=== PATIENT | male | born 1995 | race Caucasian/White ===

== ENCOUNTER 2017-04-27 18:57 | Emergency (ER) | payer OTHER ==
[~2017-04-27] VITALS: Ht 190.5 cm; Wt 66.4 kg
[~2017-04-27 18:57] MED LIST: TOPI1TAB36 PO; TRAM50TA PO
[2017-04-27 19:03] VITALS: BP 139/77; PULSE 90; RESP 16; TEMP 97.7; O2SAT 100
[2017-04-27] MEDS ORDERED: ALPR1TAB3 PO (19:28)
[2017-04-27] MEDS ORDERED: SODIUM CHLORIDE 0.9% FLUSH 10 ML FLUSH IVF PRN (19:30)
[2017-04-27] MEDS ORDERED: SODIUM CHLOR 0.9% 1000 ML INJ 1,000 ML IV ONE (19:30)
[2017-04-27 19:45] VITALS: O2SAT 100
[2017-04-27 19:51] LABS: AUTOMATED NEUTROPHIL # 5.5 TH/MM3 (1.8-7.7); BASOPHIL % 0.3 % (0.0-2.0); EOSINOPHIL # 0.4 TH/MM3 (0-0.4); EOSINOPHIL % 3.8 % (0.0-4.0); HEMATOCRIT 46.2 % (39.0-51.0); HEMO FLAGS DIFF FINAL; LYMPH % 29.9 % (9.0-44.0); LYMPHOCYTE # 2.8 TH/MM3 (1.0-4.8); MEAN CELL VOLUME 83.2 FL (80.0-100.0); MEAN CORPUSCULAR HEMOGLOBIN 28.4 PG (27.0-34.0); MEAN CORPUSCULAR HGB CONC 34.1 % (32.0-36.0); MONO % 6.5 % (0.0-8.0); NEUT % 59.5 % (16.0-70.0); PLATELET COUNT 256 TH/MM3 (150-450); RED BLOOD COUNT 5.55 MIL/MM3 (4.50-5.90); RED CELL DISTRIBUTION WIDTH 11.9 % (11.6-17.2); WHITE BLOOD COUNT 9.3 TH/MM3 (4.0-11.0)
--- NOTE | 2017-04-27 20:04 | RADRPT ---
EXAM DATE/TIME: 04/27/2017 19:26 [place] COMPARISON: CHEST SINGLE AP, March 29, 2016, 5:11. INDICATIONS : Shortness of breath for 3 days MEDICAL HISTORY : None. SURGICAL HISTORY : None. ENCOUNTER: Initial ACUITY: 3 days PAIN SCORE: 0/10 LOCATION: Bilateral chest FINDINGS: PA and lateral views of the chest demonstrate the lungs to be symmetrically aerated without evidence of mass, infiltrate or effusion. The cardiomediastinal contours are unremarkable. Osseous structure s are intact. Mild scoliosis of the thoracic spine is noted. CONCLUSION: No acute disease. Justino Treviño MD on April 27, 2017 at 20:01 Board Certified Radiologist. This report was verified electronically.
[2017-04-27 20:05] VITALS: BP 131/73; PULSE 75; RESP 20; O2SAT 100
[2017-04-27 20:05] LABS: CHLORIDE 102 MEQ/L (98-107); POTASSIUM 3.7 MEQ/L (3.5-5.1); SODIUM (NA) 138 MEQ/L (136-145)
[2017-04-27 20:08] LABS: ANION GAP 8 MEQ/L (5-15); BICARBONATE 27.8 MEQ/L (21.0-32.0)
[2017-04-27 20:09] LABS: BLOOD UREA NITROGEN 13 MG/DL (7-18)
[2017-04-27 20:10] LABS: APTT (PATIENT) 26.6 SEC (24.3-30.1); PROTHROMBIN TIME - PATIENT 11.4 SEC (9.8-11.6)
[2017-04-27 20:11] LABS: ALT (GPT) 25 U/L (12-78); AST (GOT) 23 U/L (15-37)
[2017-04-27 20:12] LABS: GLOMERULAR FILTRATION RATE 93 ML/MIN (>89)
[2017-04-27 20:13] LABS: TOTAL BILIRUBIN ADULT 1.5 MG/DL (0.2-1.0)
[2017-04-27 20:14] LABS: ALKALINE PHOSPHATASE 66 U/L (45-117)
--- NOTE | 2017-04-27 20:16 | PD ---
HPI Chief Complaint: Anxiety Time Seen by Provider: 19:12 Travel History International Travel<30 days: No Contact w/Intl Traveler<30days: No Traveled to known affect area: No History of Present Illness HPI Patient is a 21 year old male with history of seizures, who comes in complaining of "heat exhaustion." He says for the past 3 days he has been feeling weak and "delusional" at work. He says sometimes he feels like he can' t catch his breath and feels like he is having a panic attack. 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 He says he has had these feeling since going back to work 3 days ago. He says he does not drink a lot of water while working because he does not want to have to urinate. He denies any chest pain. He takes Alprazolam daily for his seizures, he does not report being out of this medication. He denies any fever. PFSH Past Medical History Asthma: No Blood Disorders: No Anxiety: Yes Depression: No Heart Rhythm Problems: No Cardiovascular Problems: No High Cholesterol: No Chemotherapy: No Chest Pain: No Congestive Heart Failure: No COPD: No Diabetes: No Diminished Hearing: No Endocrine: No Genitourinary: No Immune Disorder: Yes Musculoskeletal: No Neurologic: Yes Psychiatric: No Reproductive: No Respiratory: No Immunizations Current: Yes Radiation Therapy: No Seizures: Yes Sleep Apnea: No Thyroid Disease: No Tetanus Vaccination: < 5 Years Influenza Vaccination: No ?: Not Past Surgical History Abdominal Surgery: Yes (INGUINAL HERNIA REPAIR A BABY) Other Surgery: Yes (Hx. Hernia) Social History Alcohol Use: Yes (2 beers weekly) Tobacco Use: Yes (1 ppd) Substance Use: No Allergies-Medications (Allergen,Severity, Reaction): Coded Allergies: No Known Allergies (Verified , 04/27/17) Reported Meds & Prescriptions Reported Meds & Active Scripts Active Reported Alprazolam 1 Mg Tab 1 Mg PO DAILY Review of Systems Except as stated in HPI: all other systems reviewed are Neg General / Constitutional: No: Fever, Chills Eyes: No: Blurred Vision HENT: No: Headaches, Lightheadedness Cardiovascular: No: Chest Pain or Discomfort Respiratory: Positive: Shortness of Breath Gastrointestinal: No: Nausea, Vomiting Musculoskeletal: No: Edema, Pain Skin: No Rash, No Change in Pigmentation Neurologic: Positive: Weakness Physical Exam Narrative GENERAL: Awake and alert, in no acute distress. SKIN: Focused skin assessment warm/dry. HEAD: Atraumatic. Normocephalic. EYES: Pupils equal and round. No scleral icterus. No injection or drainage. ENT: Mucous membranes pink and moist. NECK: Trachea midline. No JVD. CARDIOVASCULAR: Regular rate and rhythm. No murmur appreciated. RESPIRATORY: No accessory muscle use. Clear to auscultation. Breath sounds equal bilaterally. GASTROINTESTINAL: Abdomen soft, non-tender, nondistended. MUSCULOSKELETAL: No obvious deformities. No clubbing. No cyanosis. No edema. NEUROLOGICAL: Awake and alert. No obvious cranial nerve deficits. Motor grossly within normal limits. Normal speech. PSYCHIATRIC: Appropriate mood and affect; insight and judgment normal. Data Data Last Documented VS Vital Signs Date Time Temp Pulse Resp B/P (MAP) Pulse Ox O2 Delivery O2 Flow Rate FiO2 04/27/17 20:05 75 20 131/73 (92) 100 Room Air 04/27/17 19:03 97.7 Orders Orders Complete Blood Count With Diff (04/27/17 19:19) Comprehensive Metabolic Panel (04/27/17 19:19) D-Dimer (04/27/17 19:19) Act Partial Throm Time (Ptt) (04/27/17 19:19) Prothrombin Time / Inr (Pt) (04/27/17 19:19) Troponin I (04/27/17 19:19) Iv Access Insert/Monitor (04/27/17 19:19) Electrocardiogram (04/27/17 19:19) Ecg Monitoring (04/27/17 19:19) Oximetry (04/27/17 19:19) Oxygen Administration (04/27/17 19:19) Chest, Pa & Lat (04/27/17 19:19) Sodium Chloride 0.9% Flush (Ns Flush) (04/27/17 19:30) Sodium Chlor 0.9% 1000 Ml Inj (Ns 1000 M (04/27/17 19:30) Labs Laboratory Tests Test 04/27/17 19:45 White Blood Count 9.3 TH/MM3 Red Blood Count 5.55 MIL/MM3 Hemoglobin 15.8 GM/DL Hematocrit 46.2 % Mean Corpuscular Volume 83.2 FL Mean Corpuscular Hemoglobin 28.4 PG Mean Corpuscular Hemoglobin Concent 34.1 % Red Cell Distribution Width 11.9 % Platelet Count 256 TH/MM3 Mean Platelet Volume 8.2 FL Neutrophils (%) (Auto) 59.5 % Lymphocytes (%) (Auto) 29.9 % Monocytes (%) (Auto) 6.5 % Eosinophils (%) (Auto) 3.8 % Basophils (%) (Auto) 0.3 % Neutrophils # (Auto) 5.5 TH/MM3 Lymphocytes # (Auto) 2.8 TH/MM3 Monocytes # (Auto) 0.6 TH/MM3 Eosinophils # (Auto) 0.4 TH/MM3 Basophils # (Auto) 0.0 TH/MM3 CBC Comment DIFF FINAL Differential Comment Prothrombin Time 11.4 SEC Prothromb Time International Ratio 1.0 RATIO Activated Partial Thromboplast Time 26.6 SEC D-Dimer Quantitative (PE/DVT) LESS THAN 0.19 MG/L FEU Blood Urea Nitrogen 13 MG/DL Creatinine 1.00 MG/DL Random Glucose 97 MG/DL Total Protein 8.2 GM/DL Albumin 4.4 GM/DL Calcium Level 9.0 MG/DL Alkaline Phosphatase 66 U/L Aspartate Amino Transf (AST/SGOT) 23 U/L Alanine Aminotransferase (ALT/SGPT) 25 U/L Total Bilirubin 1.5 MG/DL Sodium Level 138 MEQ/L Potassium Level 3.7 MEQ/L Chloride Level 102 MEQ/L Carbon Dioxide Level 27.8 MEQ/L Anion Gap 8 MEQ/L Estimat Glomerular Filtration Rate 93 ML/MIN Troponin I LESS THAN 0.02 NG/ML MDM Medical Decision Making Medical Screen Exam Complete: Yes Emergency Medical Condition: Yes Medical Record Reviewed: Yes Interpretation(s) ECG shows NSR at 85, no ST elevation or depression, short IL interval. Differential Diagnosis Anxiety versus dehydration versus URI versus bronchitis versus pneumonia Narrative Course Patient is a 21-year-old male who comes in complaining of "heat exhaustion." Type symptoms of feeling like he can't breathe and being delusional while at work. Currently he looks comfortable, he is alert and oriented 4, exam shows no acute abnormalities. IV established, labs sent. Labs show no acute abnormalities. White blood cell count is within normal limits, hemoglobin is within normal limits, electrolytes are all normal, creatinine is within normal limits. Troponin and d-dimer are negative. Chest x-ray shows no acute abnormalities. Patient given IV fluids. He is reassured and told of all of his results. He is advised to increase his fluid intake while working. He has Xanax at home, which she can take as needed. He is advised follow-up with his doctors. Advised to return to the ED as needed for any worsening symptoms. Diagnosis Primary Impression: Anxiety Patient Instructions: Anxiety (ED), Dehydration (ED), General Instructions Additional Instructions: Increase, to her drinking while working outside. Follow-up with your doctor. To take her prescribed medications as needed. Return to the ED as needed for any worsening symptoms. Disposition: 01 DISCHARGE HOME Condition: Stable Halie Castro MD Apr 27, 2017 20:16
[2017-04-27 21:12] VITALS: BP 138/73
--- NOTE | 2017-04-27 23:29 | EKG ---
Date Performed: 04/27/2017 Time Performed: 19:37:19 PTAGE: 21 years EKG: Sinus rhythm WITH SHORT UT INTERVAL BORDERLINE ECG NO PREVIOUS TRACING DOCTOR: Joon Suresh Interpretating Date/Time 04/28/2017 09:25:01
== END 2017-04-27 21:12 | disposition home or self-care (01) ==
LOC: PHED 18:57
DX: F41.9 Anxiety disorder, unspecified (principal); R06.02 Shortness of breath; F17.200 Nicotine dependence, unspecified, uncomplicated
CPT/HCPCS: 71020; 80053; 84484; 85025; 85379; 85610; 85730; 93005; 96360; 99285; J7030

== ENCOUNTER 2017-12-04 09:13 | Emergency (ER) | payer SELFPAY ==
[~2017-12-04 09:13] MED LIST changes: +ALPR1TAB3 PO; -TOPI1TAB36 PO; -TRAM50TA PO
[2017-12-04 09:17] VITALS: BP 129/67; PULSE 81; RESP 16; TEMP 97.7; O2SAT 100
[2017-12-04] MEDS ORDERED: OSEL75 PO (09:29)
[2017-12-04] MEDS ORDERED: AZIT250T3 PO (09:29)
--- NOTE | 2017-12-04 09:29 | PD ---
HPI Chief Complaint: ENT Complaint Time Seen by Provider: 09:21 Travel History International Travel<30 days: No Contact w/Intl Traveler<30days: No History of Present Illness HPI 22-year-old male complains of sore throat, headache, myalgias and cough for about 3 days. Subjective fever reported. No shortness of breath. Onset gradual. Timing constant. PFSH Past Medical History Asthma: No Blood Disorders: No Anxiety: Yes Depression: No Heart Rhythm Problems: No Cardiovascular Problems: No High Cholesterol: No Chemotherapy: No Chest Pain: No Congestive Heart Failure: No COPD: No Diabetes: No Diminished Hearing: No Endocrine: No Genitourinary: No Immune Disorder: Yes Musculoskeletal: No Neurologic: Yes Psychiatric: No Reproductive: No Respiratory: No Immunizations Current: Yes Radiation Therapy: No Seizures: Yes Sleep Apnea: No Thyroid Disease: No Past Surgical History Abdominal Surgery: Yes (INGUINAL HERNIA REPAIR A BABY) Other Surgery: Yes (Hx. Hernia) Social History Alcohol Use: Yes (2 beers weekly) Tobacco Use: Yes (1 ppd) Substance Use: No Allergies-Medications (Allergen,Severity, Reaction): Coded Allergies: No Known Allergies (Verified , 04/27/17) Reported Meds & Prescriptions Reported Meds & Active Scripts Active Reported Alprazolam 1 Mg Tab 1 Mg PO DAILY Review of Systems General / Constitutional: Positive: Fever (subjective) Cardiovascular: No: Chest Pain or Discomfort, Palpitations, Diaphoresis Respiratory: Positive: Cough, No: Shortness of Breath Physical Exam Narrative GENERAL: Well-nourished well-developed 22-year-old male no acute distress Vital Signs Date Time Temp Pulse Resp B/P (MAP) Pulse Ox O2 Delivery O2 Flow Rate FiO2 12/04/17 09:17 97.7 81 16 129/67 (87) 100 SKIN: Warm and dry. HEAD: Normocephalic. EYES: No scleral icterus. No injection or drainage. NECK: No significant anterior neck adenopathy. Posterior oropharynx is widely patent. There is minimal erythema present as well as minimal tonsillar hypertrophy without asymmetry or exudate. CARDIOVASCULAR: Regular rate and rhythm without murmurs, gallops, or rubs. RESPIRATORY: Breath sounds equal bilaterally. No accessory muscle use. GASTROINTESTINAL: Abdomen soft, non-tender, nondistended. MUSCULOSKELETAL: No cyanosis, or edema. BACK: Nontender without obvious deformity. No CVA tenderness. Data Data Last Documented VS Vital Signs Date Time Temp Pulse Resp B/P (MAP) Pulse Ox O2 Delivery O2 Flow Rate FiO2 12/04/17 09:17 97.7 81 16 129/67 (87) 100 [facility] Medical Decision Making Medical Screen Exam Complete: Yes Emergency Medical Condition: Yes Medical Record Reviewed: Yes Differential Diagnosis Pharyngitis, bronchitis, pneumonia, influenza Narrative Course Patient has a combination of viral and/or bacterial pharyngitis bronchitis and potentially atypical pneumonia. An element influenza is potential as well. We' ll provide Tamiflu and azithromycin. Diagnosis Primary Impression: URI (upper respiratory infection) Qualified Codes: J06.9 - Acute upper respiratory infection, unspecified Referrals: Primary Care Physician call for appointment Med/Other Pt SpecificInfo: Prescription(s) given Scripts Azithromycin (Azithromycin) 250 Mg Tab 250 MG PO DIRECTED for Infection, #6 TAB 0 Refills Take 2 tabs (500 mg) on day 1 then 1 tab daily x 4 days. Prov: Fabian Suresh MD 12/04/17 Oseltamivir (Tamiflu) 75 Mg Cap 75 MG PO BID for Mgmt Viral Infection for 5 Days, #10 CAP 0 Refills Prov: Fabian Suresh MD 12/04/17 Disposition: 01 DISCHARGE HOME Condition: Stable Fabian Suresh MD Dec 04, 2017 09:29
== END 2017-12-04 10:24 | disposition home or self-care (01) ==
LOC: PHED 09:13
DX: J06.9 Acute upper respiratory infection, unspecified (principal); R51 Headache; F41.9 Anxiety disorder, unspecified; F17.200 Nicotine dependence, unspecified, uncomplicated; Z79.899 Other long term (current) drug therapy; Z86.69 Personal history of other diseases of the nervous system and sense organs
CPT/HCPCS: 99283